=== PATIENT | male | born 1980 | race African-American/Black ===

== ENCOUNTER 2020-08-03 18:16 | Emergency (ER) | payer SELFPAY ==
[~2020-08-03] VITALS: Ht 170.2 cm; Wt 79.4 kg
[2020-08-03 20:21] VITALS: BP 116/62
== END 2020-08-03 20:33 | disposition home or self-care (01) ==
LOC: ER 18:16
DX: B35.3 Tinea pedis (principal)
CPT/HCPCS: 82962